=== PATIENT | female | born 1995 | race Caucasian/White ===

== ENCOUNTER 2016-12-16 01:03 | Emergency (ER) | payer BC ==
[2016-12-16] MEDS ORDERED: NS 0.9% 1000 ML* 1,000 ML IV ONE (01:51)
[2016-12-16] MEDS ORDERED: Ketorolac INJ* 30 MG/ML 1 ML VIAL IV PUSH ONE (01:51)
[2016-12-16 02:07] LABS: Hematocrit 36 % (35-47); Hemoglobin 12.5 g/dl (12.0-16.0); Mean Corpuscular HGB Conc 34 g/dl (31-36); Mean Corpuscular Hemoglobin 30 pg (27-31); Mean Corpuscular Volume 88 fL (80-97); Mean Platelet Volume 9 um3 (7.4-10.4); Red Blood Count 4.11 10^6/ul (4.0-5.4); Red Cell Distribution Width 14 % (10.5-15); White Blood Count 12.6 10^3/ul (3.5-10.8)
[2016-12-16 02:18] LABS: ALT 11 U/L (7-52); AST 12 U/L (13-39); Albumin 3.7 g/dL (3.2-5.2); Alkaline Phosphatase 43 U/L (34-104); Anion Gap 12 mmol/L (2-11); BUN/Creatinine Ratio 11.8 (8-20); Blood Urea Nitrogen 10 mg/dL (6-24); CO2 Carbon Dioxide 19 mmol/L (22-32); Calcium 9.4 mg/dL (8.6-10.3); Chloride 103 mmol/L (101-111); EGFR African American 109.7 (>60); EGFR Non-African American 85.3 (>60); Globulin 3.5 g/dL (2-4); Glucose 142 mg/dL (70-100); Potassium 3.2 mmol/L (3.5-5.0); Sodium 134 mmol/L (133-145); Total Protein 7.2 g/dL (6.4-8.9)
--- NOTE | 2016-12-16 03:19 | ED ---
Gina Wilkins Michael, scribed for Maxx Moise MD on 12/16/16 at 0158 . HPI Febrile Illness - HPI Summary HPI Summary: 20 y/o female comes to the ED presenting with lower back pain that started today while the pt was at work. She also c/o diaphoresis, SOB, fever, and arthralgia. The pt presents with a fever of 102.9 since arriving to the ED. She states that her symptoms have gradually worsened since the onset. The pt denies taking OTC medication to alleviate the fever. The PMHx is significant for asthma. - History of Current Complaint Chief Complaint: EDGeneral Hx Obtained From: Patient, Medical Records Onset/Duration: Started Hours Ago, Still Present Timing: Constant Temperature: 102.9 F Initial Severity: Mild Current Severity: Moderate Pain Intensity: 10 Pain Scale Used: 0-10 Numeric Aggravating Factors: Nothing Alleviating Factors: Nothing Associated Signs and Symptoms: Diaphoresis, Joint Pain, SOB, Other: - back pain. fever. - Allergy/Home Medications Allergies/Adverse Reactions: Allergies Allergy/AdvReac Type Severity Reaction Status Date / Time No Known Allergies Allergy Verified 10/04/14 10:51 PMH/Surg Hx/FS Hx/Imm Hx Endocrine/Hematology History: Denies: Hx Diabetes Cardiovascular History: Denies: Hx Hypertension, Hx Pacemaker/ICD Respiratory History: Reports: Hx Asthma History: Denies: Hx Renal Disease Sensory History: Denies: Hx Hearing Aid Psychiatric History: Denies: Hx Panic Disorder Infectious Disease History: No Infectious Disease History: Denies: Traveled Outside the [place] in Last 30 Days - Family History Known Family History: Negative: Diabetes - Social History Occupation: Student Lives: Alone Review of Systems All Other Systems Reviewed And Are Negative: Yes Physical Exam Triage Information Reviewed: Yes Vital Signs On Initial Exam: Initial Vitals Temp Pulse Resp BP Pulse Ox 102.9 F 138 24 101/63 98 12/16/16 01:05 12/16/16 01:05 12/16/16 01:05 12/16/16 01:05 12/16/16 01:05 Vital Signs Reviewed: Yes Appearance: Positive: Well-Appearing, No Pain Distress Skin: Positive: Warm Head/Face: Positive: Normal Head/Face Inspection Eyes: Positive: MIR ENT: Positive: Hearing grossly normal Neck: Positive: Supple Respiratory/Lung Sounds: Positive: Breath Sounds Present Cardiovascular: Positive: RRR Abdomen Description: Positive: No Organomegaly, Soft Bowel Sounds: Positive: Present Musculoskeletal: Positive: Strength/ROM Intact Neurological: Positive: Sensory/Motor Intact Diagnostics - Vital Signs Vital Signs Temp Pulse Resp BP Pulse Ox 12/16/16 01:05 102.9 F 138 24 101/63 98 - Laboratory Lab Results: Lab Results 12/16/16 12/16/16 12/16/16 Range/Units 01:40 01:40 02:04 WBC 12.6 H (3.5-10.8) 10^3/ul RBC 4.11 (4.0-5.4) 10^6/ul Hgb 12.5 (12.0-16.0) g/dl Hct 36 (35-47) % MCV 88 (80-97) fL MCH 30 (27-31) pg MCHC 34 (31-36) g/dl RDW 14 (10.5-15) % Plt Count 199 (150-450) 10^3/ul MPV 9 (7.4-10.4) um3 Neut % (Auto) 80.0 (38-83) % Lymph % (Auto) 14.0 L (25-47) % [place] % (Auto) 5.8 (1-9) % Eos % (Auto) 0.1 (0-6) % Baso % (Auto) 0.1 (0-2) % Absolute Neuts (auto) 10.1 H (1.5-7.7) 10^3/ul Absolute Lymphs (auto) 1.8 (1.0-4.8) 10^3/ul Absolute Monos (auto) 0.7 (0-0.8) 10^3/ul Absolute Eos (auto) 0 (0-0.6) 10^3/ul Absolute Basos (auto) 0 (0-0.2) 10^3/ul Absolute Nucleated RBC 0 10^3/ul Nucleated RBC % 0 Sodium 134 (133-145) mmol/L Potassium 3.2 L (3.5-5.0) mmol/L Chloride 103 (101-111) mmol/L Carbon Dioxide 19 L (22-32) mmol/L Anion Gap 12 H (2-11) mmol/L BUN 10 (6-24) mg/dL Creatinine 0.85 (0.51-0.95) mg/dL Est GFR ( Amer) 109.7 (>60) Est GFR (Non-Af Amer) 85.3 (>60) BUN/Creatinine Ratio 11.8 (8-20) Glucose 142 H (70-100) mg/dL Calcium 9.4 (8.6-10.3) mg/dL Total Bilirubin 0.60 (0.2-1.0) mg/dL AST 12 L (13-39) U/L ALT 11 (7-52) U/L Alkaline Phosphatase 43 (34-104) U/L Total Protein 7.2 (6.4-8.9) g/dL Albumin 3.7 (3.2-5.2) g/dL Globulin 3.5 (2-4) g/dL Albumin/Globulin Ratio 1.1 (1-3) Beta HCG, Quant < 0.60 mIU/mL Influenza A (Rapid) Negative (Negative) Influenza B (Rapid) Negative (Negative) Result Diagrams: 12/16/16 01:40 12/16/16 01:40 Lab Statement: Any lab studies that have been ordered have been reviewed, and results considered in the medical decision making process. Re-Evaluation - Re-Evaluation First Eval Change: Improved Course/Dx - Diagnoses Provider Diagnoses: Febrile illness Discharge - Discharge Plan Condition: Stable Disposition: HOME Patient Education Materials: Fever in Adults (ED) Referrals: Kelly Mccain MD [Primary Care Provider] - Additional Instructions: you will follow up with Dr. Mccain within the next 3 days. Please return to the ED if your symptoms worsen. The documentation as recorded by the Gina horton Michael accurately reflects the service I personally performed and the decisions made by , Maxx Moise MD.
[2016-12-16] MEDS ORDERED: Acetaminophen TAB* 325 MG ONE (04:10)
[2016-12-16] MEDS ORDERED: Acetaminophen TAB* 325 MG PO ONE (04:11)
[2016-12-16 04:16] VITALS: BP 100/42
== END 2016-12-16 04:15 | disposition home or self-care (01) ==
LOC: ED 01:03
DX: R50.9 Fever, unspecified (principal); M54.5 Low back pain; R61 Generalized hyperhidrosis; R06.02 Shortness of breath
CPT/HCPCS: 36415; 80053; 84702; 85025; 87502; 96374; 99282; A9270-GY; J1885

== ENCOUNTER 2018-02-27 15:56 | Emergency (ER) | payer BC ==
[2018-02-27] MEDS ORDERED: Ketorolac INJ* 30 MG/ML 1 ML VIAL IV ONE (16:16)
[2018-02-27] MEDS ORDERED: NS 0.9% 1000 ML* 1,000 ML IV ONE (16:16)
[2018-02-27 16:50] LABS: Urine Appearance Clear; Urine Blood Negative (Negative); Urine Color Straw; Urine Ketones Negative (Negative); Urine Protein Negative (Negative); Urine Specific Gravity 1.005 (1.010-1.030); Urine Urobilinogen Negative (Negative)
--- NOTE | 2018-02-27 18:39 | RAD ---
CLINICAL HISTORY: Low back pain COMPARISON: None TECHNIQUE: Multiple contiguous axial CT scans were obtained of the abdomen and pelvis, without intravenous contrast enhancement. Coronal and sagittal multiplanar reformations are submitted for review. Oral contrast was not administered. FINDINGS: The study is limited by the lack of intravenous contrast. This limits evaluation of the solid organs and vasculature. LUNG BASES: The lung bases are clear. LIVER: The liver measures 19.2 cm in long axis. The right lobe extends below the lower pole of the right kidney. BILE DUCTS: There is no intrahepatic or extrahepatic biliary dilatation. GALLBLADDER: The gallbladder is normal, without pericholecystic inflammatory change. PANCREAS: The pancreas is normal, without mass or ductal dilatation. SPLEEN: Normal in size and appearance. UPPER GI TRACT: Evaluation of the gastrointestinal tract is limited by incomplete gastric distention. The upper GI tract is unremarkable. SMALL BOWEL AND MESENTERY: The small bowel is normal in contour, course, and caliber. There is no obstruction or dilatation. COLON: The colon is normal in contour, course, caliber. There is no pericolonic inflammatory change. There is large amount of stool throughout the colon. ADRENALS: Normal bilaterally. KIDNEYS: The kidneys are normal in shape, size, contour, and axis. There is no hydronephrosis or nephrolithiasis. BLADDER: The bladder is smooth in contour. PELVIC ORGANS: The uterus and adnexa are grossly normal for technique. A tampon is noted. AORTA: The aorta is normal. IVC: Unremarkable LYMPH NODES: There is no lymphadenopathy by size criteria. ABDOMINAL WALL: There is no evidence for abdominal wall hernia. BONES AND SOFT TISSUES: The bones and soft tissues are unremarkable. OTHER: None IMPRESSION: 1. HEPATOMEGALY. 2. NO HYDRONEPHROSIS OR NEPHROLITHIASIS. 3. LARGE AMOUNT OF STOOL THROUGHOUT THE COLON.
--- NOTE | 2018-02-27 18:41 | RAD ---
HISTORY: Low back pain COMPARISONS: MRI dated October 08, 2014 TECHNIQUE: Multiple contiguous axial CT scans were obtained of the lumbar spine without intravenous contrast, with coronal and sagittal multiplanar reformations. FINDINGS: SPINAL CANAL: Evaluation of the central canal is limited on CT technique; however, there is no obvious canalicular mass or epidural hemorrhage. ALIGNMENT: The alignment is normal. VERTEBRAL BODIES: The vertebral bodies are preserved in height. The bones are normal in attenuation. JOINTS: There is no subluxation or dislocation. MUSCULATURE: Unremarkable INTERVERTEBRAL DISCS: There is mild diffuse loss of intervertebral disc height throughout the spine. AXIAL IMAGES: T12-L1: There is no osseous neural foraminal narrowing or central canal stenosis. L1-L2: There is no osseous neural foraminal narrowing or central canal stenosis. L2-L3: There is no osseous neural foraminal narrowing or central canal stenosis. L3-L4: There is no osseous neural foraminal narrowing or central canal stenosis. L4-L5: There is mild broad-based disc bulge. There is no osseous neural foraminal area or central canal stenosis. L5-S1: There is a broad-based disc bulge. There is no osseous neural foraminal narrowing or central canal stenosis. SOFT TISSUES: The visualized soft tissues of the abdomen are unremarkable. OTHER: Accounting for differences in technique, the appearance is similar to the 2014 examination. IMPRESSION: MILD DEGENERATIVE DISC DISEASE.
[2018-02-27 19:36] VITALS: BP 115/77
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
== END 2018-02-27 19:37 | disposition home or self-care (01) ==
LOC: ED 15:56
DX: M54.5 Low back pain (principal); M51.36 Other intervertebral disc degeneration, lumbar region
CPT/HCPCS: 72131; 74176; 81003; 96361; 96374; 99282; J1885